=== PATIENT | female | born 1990 ===

== ENCOUNTER 2024-09-19 10:22 | Emergency (ER) | payer MEDICAID ==
[~2024-09-19] VITALS: Ht 182.9 cm; Wt 97.7 kg
[2024-09-19 10:35] VITALS: TEMP 98.2
[2024-09-19] MEDS ORDERED: FAMO20 PO (10:37)
[2024-09-19] MEDS ORDERED: METO10TA3 PO (10:37)
[2024-09-19] MEDS ORDERED: ONDA-243 SL (10:37)
[2024-09-19] MEDS ORDERED: POTA-203 PO (10:37)
[2024-09-19] MEDS ORDERED: COMP10 PO (10:37)
[2024-09-19 11:40] LABS: BASOPHILS % (AUTO) 1.5 % (0.0-2.0); EOSINOPHILS % (AUTO) 0.3 % (1.0-6.0); HEMATOCRIT 34.8 % (36-46); HEMOGLOBIN 11.7 g/dL (12.0-16.0); LYMPHOCYTES % (AUTO) 16.4 % (22.0-44.0); MEAN CORPUSCULAR HGB CONC 33.6 G/dL (31.0-37.0); MEAN CORPUSCULAR VOLUME 95 fL (80-100); MONOCYTES # (AUTO) 0.4 K/uL (0.1-1.0); MONOCYTES % (AUTO) 6.1 % (2.0-9.0); NEUTROPHILS # (AUTO) 4.4 K/uL (1.8-7.7); NEUTROPHILS % (AUTO) 75.7 % (40.0-70.0); PLATELET COUNT (AUTO) 150 K/uL (150-450); RED BLOOD CELL COUNT(AUTO) 3.66 MIL/uL (4.00-5.20); RED CELL DISTRIBUTION WIDTH 16.2 % (11.5-14.5); WHITE BLOOD COUNT (AUTO) 5.8 K/uL (4.5-11.0)
[2024-09-19 11:49] LABS: ANION GAP 14 mmol/L (8-16); CALCIUM, TOTAL 8.4 mg/dL (8.8-10.5); CARBON DIOXIDE 21 mmol/L (22-29); CHLORIDE 103 mmol/L (98-107); CREATININE 0.78 mg/dL (0.60-1.30); GLOMERULAR FILTR. RATE CALC > 60 mL/min (>60); GLUCOSE,RANDOM 164 mg/dL (70-110); POTASSIUM 3.1 mmol/L (3.5-5.1); SODIUM SERUM 138 mmol/L (136-145); UREA NITROGEN, BLOOD 1 mg/dL (7-18)
[2024-09-19] MEDS: SODIUM CHLORIDE 0.9% 1,000 ML IV ONE (11:51)
[2024-09-19 11:54] LABS: ALANINE AMINOTRANSFERASE 45 U/L (12-78); ALBUMIN 3.1 g/dL (3.4-5.0); ALKALINE PHOSPHATASE 213 U/L (46-116); ASPARTATE AMINOTRANSFERASE 129 U/L (15-37); BILIRUBIN,TOTAL 4.8 mg/dL (0.1-1.0); LIPASE 22 U/L (16-77); TOTAL PROTEIN, SERUM 6.6 g/dL (6.4-8.2)
[2024-09-19] MEDS: ONDANSETRON HCL 4 MG/2 ML VIAL IVP ONE (11:54)
[2024-09-19 13:06] LABS: APPEARANCE,URINE HAZY (CLEAR); BILIRUBIN,URINE NEGATIVE (NEGATIVE); COLOR,URINE YELLOW (YELLOW); GLUCOSE, URINE (UA) NEGATIVE (NEGATIVE); KETONES,URINE NEGATIVE (NEGATIVE); LEUKOCYTE ESTERASE ,URINE MODERATE (NEGATIVE); NITRATE,URINE NEGATIVE (NEGATIVE); OCCULT BLOOD,URINE NEGATIVE (NEGATIVE); PROTEIN,URINE NEGATIVE (NEGATIVE); SPECIFIC GRAVITIY, URINE 1.004 (1.003-1.030); UROBILINOGEN,URINE <=1.0 mg/dL (<=1.0)
[2024-09-19 13:27] LABS: BACTERIA,URINE None Seen /HPF (None Seen); RBC,URINE None Seen /HPF (0-2); SQUAMOUS EPITHELIAL CELL,UR Few /LPF (None Seen)
[2024-09-19] MEDS: POTASSIUM CHLORIDE 20 MEQ ER TABLET PO ONE (14:07)
[2024-09-19] MEDS: PROCHLORPERAZINE EDISYLATE 5 MG/ML 2 ML VIAL IVP ONE (14:07)
[2024-09-19 14:30] VITALS: BP 112/69; PULSE 77; RESP 16; O2SAT 98
[2024-09-19] MEDS ORDERED: OMEP20 PO (14:51)
[2024-09-19] MEDS ORDERED: POTA8TAB71 PO (14:51)
[2024-09-19] MEDS ORDERED: PROC5TAB54 PO (14:51)
== END 2024-09-19 15:08 | disposition left against medical advice (07) ==
LOC: EMS 10:26
DX: K74.60 Unspecified cirrhosis of liver (principal); E87.6 Hypokalemia; R10.84 Generalized abdominal pain; I10 Essential (primary) hypertension; F12.90 Cannabis use, unspecified, uncomplicated; Z79.899 Other long term (current) drug therapy; Z88.5 Allergy status to narcotic agent
CPT/HCPCS: 99284; 96374; 96361; 96375; 80048; 80076; 81001; 83690; 84703; 85025; 36415; J2405; J0780; J7030